=== PATIENT | female | born 1940 | race Caucasian/White ===

== ENCOUNTER 2017-10-08 17:52 | Emergency (ER) | payer OTHER ==
[~2017-10-08] VITALS: Ht 152.4 cm; Wt 71.0 kg
[~2017-10-08 17:52] MED LIST: CYANOCOBALAM1000 MCG PO; Caltrate 600/200 PO; DETROL LA4 MG PO; Ecotrin PO; Feosol PO; Lopressor PO; METHOTREXATE2.5 MG PO; NEXIUM40 MG PO; Pradaxa PO; Vicodin,Norco 5/325 PO; Vitamin D, Drisdol PO; predniSONE PO
[2017-10-08 20:24] VITALS: BP 133/63
== END 2017-10-08 20:30 | disposition home or self-care (01) ==
LOC: EME 17:52
DX: S00.83XA Contusion of other part of head, initial encounter (principal); W18.39XA Other fall on same level, initial encounter; Y93.89 Activity, other specified; M35.3 Polymyalgia rheumatica; K21.9 Gastro-esophageal reflux disease without esophagitis; I10 Essential (primary) hypertension; Z85.9 Personal history of malignant neoplasm, unspecified; Z88.0 Allergy status to penicillin; Z88.2 Allergy status to sulfonamides; Z88.1 Allergy status to other antibiotic agents
CPT/HCPCS: 70450; 72125; 99281; 99283